=== PATIENT | female | born 1975 | race Hispanic/Latino ===

== ENCOUNTER 2021-04-17 02:42 | Emergency (ER) | payer MEDICAID ==
--- NOTE | 2021-04-17 03:55 | Emergency Department Report ---
HPI - General Chief Complaint: Psych Time Seen by Provider: 04/17/21 03:43 - HPI HPI: [facility] Patient is a 45-year-old female brought in for aggressive behavior. Patient has a history of bipolar disorder and schizophrenia is reportedly throwing objects around her residential during a manic episode. The patient is a mae of the state reportedly and the conservator reported the patient has made suicidal statements. When asked questions the patient states she does not want to answer any more questions and to send her to the psychiatric hospital ED Past Medical Hx - Past Medical History Hx Psychiatric Treatment: Yes (BIPOLAR, SCHIZOPHRENIA) - Surgical History Past Surgical History?: No - Family History Family history: no significant - Social History Smoking Status: Unknown if ever smoked - Medications Home Medications: Home Medications Medication Instructions Recorded Confirmed Last Taken Type No Known Home Medications [No 04/17/21 04/17/21 Unknown History Reported Home Medications] ED Review of Systems ROS: Stated complaint: ABNORMAL BEHAVIOR,REQUEST URINALYSIS Other details as noted in HPI Constitutional: no symptoms reported Eyes: denies: eye pain ENT: denies: throat pain Respiratory: no symptoms reported Endocrine: no symptoms reported Psychiatric: suicidal thoughts Physical Exam - Physical Exam Physical Exam: GENERAL: The patient is well-developed well-nourished female sitting in chair not appearing to be in acute distress. [] HEENT: Normocephalic. Atraumatic. Extraocular motions are intact. Patient has moist mucous membranes. NECK: Supple. Trachea midline CHEST/LUNGS: Clear to auscultation. There is no respiratory distress noted. HEART/CARDIOVASCULAR: Regular. There is no tachycardia. There is no gallop rub or murmur. ABDOMEN: Abdomen is soft, nontender. Patient has normal bowel sounds. There is no abdominal distention. SKIN: There is no rash. There is no edema. There is no diaphoresis. NEURO: The patient is awake, alert, and oriented. The patient is cooperative. The patient has no focal neurologic deficits. The patient has normal speech. GCS 15 MUSCULOSKELETAL: There is no evidence of acute injury. ED Medical Decision Making - Lab Data Result diagrams: 04/17/21 04:03 04/17/21 04:03 Laboratory Tests 04/17/21 04/17/21 04/17/21 04:03 04:03 04:03 WBC 10.3 RBC 3.67 Hgb 12.9 Hct 38.0 MCV 104 H MCH 35 H MCHC 34 RDW 12.6 L Plt Count 352 Lymph % (Auto) 19.2 [place] % (Auto) 10.5 H Eos % (Auto) 5.1 H Baso % (Auto) 0.7 Lymph # (Auto) 2.0 [place] # (Auto) 1.1 H Eos # (Auto) 0.5 H Baso # (Auto) 0.1 Seg Neutrophils % 64.5 Seg Neutrophils # 6.6 Sodium 137 Potassium 3.4 L Chloride 97.9 L Carbon Dioxide 25 Anion Gap 18 BUN 8 Creatinine 0.8 Estimated GFR > 60 BUN/Creatinine Ratio 10 Glucose 118 H Calcium 9.8 Total Bilirubin 0.30 AST 27 ALT 23 Alkaline Phosphatase 122 Total Protein 7.2 Albumin 4.0 Albumin/Globulin Ratio 1.3 HCG, Qual Salicylates < 0.3 L Acetaminophen Plasma/Serum Alcohol 04/17/21 04/17/21 04/17/21 04:03 04:03 04:03 WBC RBC Hgb Hct MCV MCH MCHC RDW Plt Count Lymph % (Auto) [place] % (Auto) Eos % (Auto) Baso % (Auto) Lymph # (Auto) [place] # (Auto) Eos # (Auto) Baso # (Auto) Seg Neutrophils % Seg Neutrophils # Sodium Potassium Chloride Carbon Dioxide Anion Gap BUN Creatinine Estimated GFR BUN/Creatinine Ratio Glucose Calcium Total Bilirubin AST ALT Alkaline Phosphatase Total Protein Albumin Albumin/Globulin Ratio HCG, Qual Negative Salicylates Acetaminophen 8.6 L Plasma/Serum Alcohol < 0.01 - Differential Diagnosis Bipolar disorder Critical care attestation.: If time is entered above; I have spent that time in minutes in the direct care of this critically ill patient, excluding procedure time. ED Disposition Clinical Impression: Aggressive behavior Disposition: [address] [place] [address] Is pt being admited?: No Does the pt Need Aspirin: No Condition: Stable Referrals: PRIMARY CARE, [Primary Care Provider] - 3-5 Days
[2021-04-17 04:22] LABS: Basophils # (Auto) 0.1 K/mm3 (0.0-0.1); Basophils % (Auto) 0.7 % (0.0-1.8); Eosinophils # (Auto) 0.5 K/mm3 (0.0-0.4); Eosinophils % (Auto) 5.1 % (0.0-4.3); Hemoglobin 12.9 gm/dl (10.1-14.3); Lymphocytes % (Auto) 19.2 % (13.4-35.0); Mean Corpuscular HGB Conc 34 % (30-34); Mean Corpuscular Volume 104 fl (79-97); Monocytes # (Auto) 1.1 K/mm3 (0.0-0.8); Monocytes % (Auto) 10.5 % (0.0-7.3); Platelet Count 352 K/mm3 (140-440); Red Blood Count 3.67 M/mm3 (3.65-5.03); Red Cell Distribution Width 12.6 % (13.2-15.2)
[2021-04-17 04:43] LABS: Alanine Aminotransferase 23 units/L (7-56); BUN/Creatinine Ratio 10; Blood Urea Nitrogen 8 mg/dL (7-17); Calcium 9.8 mg/dL (8.4-10.2); Hemolysis Index 3
--- NOTE | 2021-04-17 10:34 | Consultation ---
History of Present Illness - Reason for Consult Consult date: 04/17/21 Reason for consult: mental health evaluation - History of Present Psychiatric Illness ED Note: Patient is a 45-year-old female brought in for aggressive behavior. Patient has a history of bipolar disorder and schizophrenia is reportedly throwing objects around her usp during a manic episode. The patient is a mae of the [facility] and the conservator reported the patient has made suicidal statements. When asked questions the patient states she does not want to answer any more questions and to send her to the psychiatric hospital Arina Shay is a 45 year old female with history of Schizophrenia, and Bipolar disorder. In my interview with the patient is withdrawn, calm, alert and oriented x2. The patient reports she lives in a usp and they brought her to the ED " because I can't do everything they say." The patient is a poor historian. She endorses being depressed but denies any current suicidal/homicidal ideation and denies hallucinations. A continued recommendation for inpatient placement due to recent aggressive behaviors and chauhan icidal ideation. PAST PSYCHIATRIC HISTORY Diagnoses: Schizophrenia, Bipolar Suicide attempts or Self-harm behavior:Yes Prior psychiatric hospitalizations: Yes Substance Abuse history: Denies Previous psychiatric medications tried: Seroquel Outpatient treatment: Unknown PAST MEDICAL HISTORY: None reported Family Psychiatric History: None reported or documented SOCIAL HISTORY Marital Status: Living Arrangements: Penitentiary Employment Status: unemployed Access to guns/weapons: Denies Education: 12th grade History of Abuse: Denies Legal History: None reported REVIEW OF SYSTEMS Constitutional: Negative for weight loss ENT: Negative for stridor Respiratory: Negative for cough or hemoptysis All other systems reviewed and are negative MENTAL STATUS EXAMINATION General Appearance and Behavior: Age appropriate, good hygiene, not wearing appropriate clothes, good eye contact, cooperative polite with questioning. Cooperation: Participating/engaged Psychomotor Behavior: Psychomotor normal Mood: " depressed" Affect and affective range: Congruent with stated mood Thought Process: Goal directed Thought Content: Reality oriented Speech: normal tone and pace Suicidal Ideation: Denies Homicidal Ideation: Denies HI Hallucinations: Denies Delusions: None Impulse Control: Limited Insight and Judgment: Limited insight and fair judgment Memory: Normal Attention: Normal Orientation: Alert, oriented, Assessment and Plan Bipolar disorder Treatment 1013 Restart home meds Start Seroquel 25mg po BID Start Seroquel 50mg po QHS Medical: Per primary Sitter: Defer to primary Disposition: Recommend acute inpatient treatment. Will follow. Medications and Allergies Medications and Allergies Allergies Allergy/AdvReac Type Severity Reaction Status Date / Time amoxicillin AdvReac Hives Verified 04/17/21 03:03 Home Medications Medication Instructions Recorded Confirmed Last Taken Type No Known Home Medications [No 04/17/21 04/17/21 Unknown History Reported Home Medications] Mental Status Exam - Vital signs Last Vital Signs Temp Pulse Resp 18 04/17/21 02:59 BP Pulse Ox 98 04/17/21 02:59 Results Result Diagrams: 04/17/21 04:03 04/17/21 04:03 Abnormal lab results 04/17/21 04/17/21 04/17/21 Range/Units 04:03 04:03 04:03 MCV 104 H (79-97) fl MCH 35 H (28-32) pg RDW 12.6 L (13.2-15.2) % [place] % (Auto) 10.5 H (0.0-7.3) % Eos % (Auto) 5.1 H (0.0-4.3) % [place] # (Auto) 1.1 H (0.0-0.8) K/mm3 Eos # (Auto) 0.5 H (0.0-0.4) K/mm3 Potassium 3.4 L (3.6-5.0) mmol/L Chloride 97.9 L (98-107) mmol/L Glucose 118 H (65-100) mg/dL Salicylates < 0.3 L (2.8-20.0) mg/dL Acetaminophen (10.0-30.0) ug/mL 04/17/21 Range/Units 04:03 MCV (79-97) fl MCH (28-32) pg RDW (13.2-15.2) % [place] % (Auto) (0.0-7.3) % Eos % (Auto) (0.0-4.3) % [place] # (Auto) (0.0-0.8) K/mm3 Eos # (Auto) (0.0-0.4) K/mm3 Potassium (3.6-5.0) mmol/L Chloride (98-107) mmol/L Glucose (65-100) mg/dL Salicylates (2.8-20.0) mg/dL Acetaminophen 8.6 L (10.0-30.0) ug/mL All other labs normal.
--- NOTE | 2021-04-17 12:34 | Event Note ---
Date: 04/17/21 45-year-old female with bipolar disorder here with psychosis. She was seen by my colleague and was medically cleared for psychiatric evaluation and placement. Vital signs reviewed and are stable. Currently awaiting inpatient psychiatric facility placement.
[2021-04-17] MEDS ORDERED: QUEtiapine 25 MG TAB PO SCH (22:00)
[2021-04-17] MEDS: QUEtiapine 25 MG TAB PO SCH (22:01)
[2021-04-17 22:23] LABS: Bacteria,Urine 1+ /HPF (Negative); Bilirubin,Urine NEG (Negative); Blood,Urine NEG (Negative); Color,Urine Yellow (Yellow); Protein,Urine <15 mg/dL mg/dL (Negative); Urobilinogen,Urine < 2.0 mg/dL (<2.0)
[2021-04-17 22:28] LABS: Amphetamine Screen,Urine Negative; Benzodiazepines Screen,Urine Negative; Cannabinoid Screen,Urine Negative; Cocaine Screen,Urine Negative; Methadone Screen,Urine Negative; Opiate Screen,Urine Negative
[2021-04-18] MEDS: QUEtiapine 25 MG TAB PO SCH ×2 (09:49→22:45)
--- NOTE | 2021-04-18 09:50 | Progress Note ---
Subjective - Reason for Consult Consult date: 04/18/21 Reason for consult: aggression - Chief Complaint Chief complaint: The patient was seen today. She is calm, and cooperative. She says she was brought to the ER by ambulance from her usp. She is standing at the nurses station asking about going back to her usp. The patient says "I was agitated." She says "the staff brought me here for being agitated, that's what they say." She denies SI/HI. The patient says "I never was that. I said some stuff when I got mad." She denies hallucinations of any kind. The nurse caring for the patient says she has been calm and cooperative, but at times is demanding. REVIEW OF SYSTEMS Constitutional: Negative for weight loss ENT: Negative for stridor Respiratory: Negative for cough or hemoptysis All other systems reviewed and are negative MENTAL STATUS EXAMINATION General Appearance and Behavior: Age appropriate, good hygiene, not wearing appropriate clothes, good eye contact, cooperative polite with questioning. Cooperation: Participating/engaged Psychomotor Behavior: Psychomotor normal Mood: okay Affect and affective range: Congruent with stated mood Thought Process: Goal directed Thought Content: Reality oriented Speech: normal tone and pace Suicidal Ideation: Denies Homicidal Ideation: Denies HI Hallucinations: Denies Delusions: None elicited Impulse Control: Limited Insight and Judgment: Limited insight and fair judgment Memory: Normal Attention: Normal Orientation: Alert, oriented, Assessment and Plan Bipolar disorder Treatment d/c 1013 Continue home meds previously prescribed by outpatient provider Medical: Per primary Sitter: Defer to primary Disposition: Do not recommend acute inpatient treatment. The patient may return to the usp once medically clear Will sign off. Thanks Case staffed with Dr. Perkins Mental Status Exam - Vital signs Last Vital Signs Temp 98.3 F 04/18/21 02:00 Pulse 78 04/18/21 02:00 Resp 16 04/18/21 02:00 BP 107/73 04/18/21 02:00 Pulse Ox 95 04/18/21 02:59
--- NOTE | 2021-04-18 12:01 | Emergency Department Report ---
Blank Doc - Documentation Documentation: 45-year female here for mental health evaluation for aggressive behavior. Carisa peguero's mood has stabilized since the ED stay. Mental health evaluated patient with recommendation to discharge back to shelter and continue current medications. Urine noted to have leukocytosis and large number epithelial cells and bacteria likely contaminant however patient will be treated empirically with a prescription for Macrobid.
[2021-04-19] MEDS: QUEtiapine 25 MG TAB PO SCH ×3 (08:30→23:20)
--- NOTE | 2021-04-19 13:55 | Event Note ---
Patient has been cleared by mental health provider for discharge. Awaiting safe discharge disposition by case management. Vital signs date
[2021-04-19] MEDS ORDERED: ACETAMINOPHEN 325 MG TAB PO ONE (23:23)
[2021-04-19] MEDS ORDERED: LORazepam 1 MG TAB PO ONE (23:23)
--- NOTE | 2021-04-20 11:47 | Event Note ---
Date: 04/20/21 S: No events reported overnight O: Vital Signs - 8 hr 04/20/21 12:09 Temperature 98.6 F Pulse Rate 72 Respiratory 16 Rate Blood Pressure 105/67 [Left] O2 Sat by Pulse 96 Oximetry A/P: Awaiting case management for safe discharge
[2021-04-21] MEDS: QUEtiapine 25 MG TAB PO SCH ×3 (08:51→22:50)
[2021-04-22] MEDS: QUEtiapine 25 MG TAB PO SCH (10:33)
[2021-04-23] MEDS: QUEtiapine 25 MG TAB PO SCH ×3 (07:58→22:35)
--- NOTE | 2021-04-23 13:11 | Emergency Department Report ---
Blank Doc - Documentation Documentation: Chart and nurses notes reviewed 45-year-old female cleared by mental health on April 18 currently awaiting state discharge planning. Patient initially Covid positive on April 17 however on April 21 her Covid test was negative. No events overnight. Vital signs within normal limits
[2021-04-24] MEDS: QUEtiapine 25 MG TAB PO SCH ×3 (10:05→22:16)
--- NOTE | 2021-04-24 11:25 | Event Note ---
Date: 04/24/21 Patient is 45 years old female with history of bipolar disorder. Patient admitted to the ER for evaluation of aggressive behavior. Vital signs stable. Labs reviewed and is unremarkable. Patient initially had a Covid positive test on 17 April however on the it came back negative. Waiting for psychiatric inpatient admission.
[2021-04-25] MEDS: QUEtiapine 25 MG TAB PO SCH ×3 (09:15→22:13)
--- NOTE | 2021-04-25 11:49 | Emergency Department Report ---
Blank Doc - Documentation Documentation: 25-year-old female currently awaiting placement by case management. Patient has been medically cleared and cleared by mental health. Initial positive Covid test subsequently negative
[2021-04-26] MEDS: QUEtiapine 25 MG TAB PO SCH ×2 (10:15→21:51)
--- NOTE | 2021-04-26 11:26 | Emergency Department Report ---
Blank Doc - Documentation Documentation: Patient is resting this morning without complaint. We are still awaiting plac ement by case management. She is not suicidal homicidal. She is not delusional. We will continue to await social media specialist input and disposition.
[2021-04-27] MEDS: QUEtiapine 25 MG TAB PO SCH ×2 (12:05→23:49)
[2021-04-27 19:59] VITALS: BP 101/68
--- NOTE | 2021-04-28 10:57 | Emergency Department Report ---
Blank Doc - Documentation Documentation: Patient is resting this morning without complaint. She had no significant berta nts of the night. Patient is in no respiratory distress. She is pleasant and cooperative. Assessment per case management is for her to be discharged today. Discharge paperwork has been completed.
[2021-04-28] MEDS ORDERED: LORazepam 1 MG TAB PO ONE (15:47)
[2021-04-28] MEDS ORDERED: LORazepam 2 MG TAB ONE (15:48)
== END 2021-04-28 17:29 | disposition home or self-care (01) ==
LOC: ED 02:42
DX: F31.9 Bipolar disorder, unspecified (principal); F20.9 Schizophrenia, unspecified; Z20.822 Contact with and (suspected) exposure to COVID-19
CPT/HCPCS: 36415; 80053; 80307; 81001; 84703; 85025; 87086; 99284; U0003; 80320; G0480